=== PATIENT | female | born 1995 ===

== ENCOUNTER 2019-09-10 14:53 | Emergency (ER) | payer SELFPAY | END 2019-09-10 17:00 | disposition home or self-care (01) | LOC: ERS 14:53 | DX: O99.513 Diseases of the respiratory system complicating pregnancy, third trimester (principal); J06.9 Acute upper respiratory infection, unspecified; Z79.82 Long term (current) use of aspirin; Z3A.29 29 weeks gestation of pregnancy | CPT/HCPCS: 87081; 87430; 87804; 99283 ==